=== PATIENT | female | born 1955 | race Caucasian/White ===

== ENCOUNTER → 2017-05-28 | Outpatient (CLI) | payer BC ==
[~2017-05-28] MED LIST: AMIT25TA9 PO; CHOL20009 PO; FLUT0.0529 NAE; LEVO125T72 PO; MOME200A INH; MONT1TAB3 PO; MULT-506 PO; PRLSR20 PO; SIMV40TA2 PO; ZINC1TAB PO
--- NOTE | 2017-05-29 14:21 | MAMMOGRAPHY REPORT ---
BILATERAL DIGITAL SCREENING MAMMOGRAM TOMOSYNTHESIS WITH CAD: 05/28/2017 CLINICAL HISTORY: Routine screening. Patient has no complaints. TECHNIQUE: Breast tomosynthesis in addition to standard 2D mammography was performed. Current study was also evaluated with a Computer Aided Detection (CAD) system. COMPARISON: Comparison is made to exams dated: 05/23/2016 mammogram, 05/18/2015 mammogram, 01/22/2014 mamm ogram, 01/16/2013 mammogram, 01/09/2012 mammogram, and 12/15/2010 mammogram - [facility] . BREAST COMPOSITION: The tissue of both breasts is heterogeneously dense, which may obscure small mas ses. FINDINGS: There are scattered and loosely grouped stable benign-appearing round and punctate microcal cifications. No suspicious mass, architectural distortion or cluster of new, suspicious microcalcifi cations is seen. IMPRESSION: ACR BI-RADS CATEGORY 1: NEGATIVE There is no mammographic evidence of malignancy. A 1 year screening mammogram is recommended. The pa tient will receive written notification of the results. Approximately 10% of breast cancers are not detected with mammography. A negative mammographic report should not delay biopsy if a clinically suggestive mass is present. Laura Truong M.D. ay/:05/28/2017 18:31:50 Television Tube Inspector: Ita WU)(M), [facility] letter sent: Normal 1/2 BI-RADS Code: ACR BI-RADS Category 1: Negative
== END | disposition home or self-care (01) ==
LOC: C.MAMM 07:31
PROVIDERS: ATTEND Obstetrics & Gynecology
DX: Z12.31 Encounter for screening mammogram for malignant neoplasm of breast (principal)

== ENCOUNTER → 2017-11-08 | Day surgery (SDC) | payer BC ==
[2017-11-01 08:11] VITALS: Ht 165.1 cm; Wt 58.2 kg
[~2017-11-08] VITALS: Ht 165.1 cm; Wt 58.2 kg
[~2017-11-08] MED LIST changes: +ASTN; +B-COTAB18 PO; +CALC500T68 PO; -FLUT0.0529 NAE; +FLUT50SP45 NAE; -LEVO125T72 PO; +LEVO88TA PO; +LIDOCAINE HCL 2% 2 ML VIAL (20MG/ML) ONE; +MIDAZOLAM HCL 1 MG/ML 2ML VIAL ONE; +OMEG10007 PO; +ONDANSETRON INJ 2 MG/ML 2 ML VIAL ONE; +PANT40TA PO; -PRLSR20 PO; +PROPOFOL IV EMULSION 10 MG/ML 20 ML VIAL IV ONE; +RANI150T3 PO; +SODIUM CHLORIDE 0.9% 500ML 500 ML IV ONE
--- NOTE | 2017-11-08 09:24 | Endo History and Physical ---
History & Physical Date of Service: Nov 08, 2017. Chief Complaint: Screening Referring Physician: Dr. Wilkerson History of Present Illness 62 yo CF who presents for screening colonoscopy. Past Medical History Asthma, Gastrointestinal Disorder, Reflux, High Cholesterol, Thyroid Disease Past Surgical History Hx Cardiac Surgery: No Hx Internal Defibrillator: No Hx Pacemaker: No Hx Abdominal Surgery: Yes (APPY, LAPAROSCOPY) Hx of Implantable Prosthesis: No Hx Post-Op Nausea and Vomiting: Yes Hx Cancer Surgery: No Hx Thoracic Surgery: No Hx Orthopedic: No Hx Urinary Tract Surgery: No Family History None Social History Smoking Status: Former Smoker Hx Substance Use: No Hx Alcohol Use: Yes (OCCASIONALLY) Allergies Coded Allergies: Dairy (Verified Allergy, Unknown, CONGESTED, 11/01/17) Erythromycin (Verified Allergy, Unknown, RASH, 11/01/17) Latex (Verified Allergy, Unknown, RASH, 11/01/17) Penicillins (Verified Allergy, Unknown, HIVES, 11/01/17) Sulfa Antibiotics (Verified Allergy, Unknown, HIVES, 11/01/17) Tetracycline (Verified Allergy, Unknown, RASH, 11/01/17) Ketorolac Tromethamine (Verified Adverse Reaction, Unknown, N/V, 11/01/17) Meperidine (Verified Adverse Reaction, Unknown, N/V, 11/01/17) Tramadol (Verified Adverse Reaction, Unknown, N/V, 11/01/17) Uncoded Allergies: PEANUTS (Allergy, Unknown, CONGESTED, 01/17/16) Current Medications Reported Home Medications Medications Dose Route/Sig Max Daily Dose Days Date Category Astelin Nasal [place] (Azelastine Hcl) 200 Sprays/30 Ml [place] 1-2 Sprays NA BID PRN 11/01/17 Reported Vitamin B Complex (B-Complex Vitamins) 1 Tab Tab 1 Tab PO 3XWK 11/01/17 Reported Calcium/Magnesium (Calcium W/ Magnesium) 1 Tab Tab 1 Tab PO QAM 11/01/17 Reported [place]-3 (Fish Oil) 1 Ea Cap 1 Cap PO QPM 11/01/17 Reported Allergy Nasal [place] 24 Ho (Fluticasone Propionate (Nasal)) 50 Mcg/Act Spr 1 [place] UMER DAILY PRN 11/01/17 Reported Zantac (Ranitidine HCl) 150 Mg Tab 150 Mg PO DAILY PRN 11/01/17 Reported Protonix (Pantoprazole Sodium) 40 Mg Tab 40 Mg PO QAM 11/01/17 Reported Synthroid (Levothyroxine Sodium) 88 Mcg Tab 88 Mcg PO QAM 11/01/17 Reported Vitamin D (Cholecalciferol) 2,000 Unit Tab 2 Tab PO QAM 01/17/16 Reported Dulera 200/5 Mcg (Mometasone Furoate-Formoterol) 1 Aer Aer 2 Puffs INH BID 30 01/17/16 Reported Singulair (Montelukast Sodium) 10 Mg Tab 10 Mg PO QAM 01/17/16 Reported Zocor (Simvastatin) 40 Mg Tab 40 Mg PO QAM 01/17/16 Reported Zinc (Zinc Gluconate) 50 Mg Tab 50 Mg PO QAM 03/15/14 Reported Multivitamin (Multivitamins) Tab 1 Tab PO QAM 03/15/14 Reported Elavil (Amitriptyline Hcl) 25 Mg Tab 25 Mg PO HS 03/15/14 Reported Vital Signs Weight (Kilograms): 58.18 Height (Feet): 5 Height (Inches): 5 Physical Exam General Appearance: WD/WN, no apparent distress Respiratory/Chest: Auscultation: breath sounds normal Cardiovascular: Heart Auscultation: RRR Abdomen: Bowel Sounds: normal Inspection & Palpation: soft, non-distended, no tenderness, guarding & rebound Assessment and Plan Assessment: 62 yo CF who presents for screening colonoscopy. Plan: Proceed with colonoscopy.
--- NOTE | 2017-11-08 10:24 | Discharge Instructions ---
Endoscopy Patient Instructions Date / Procedure(s) Performed Nov 08, 2017. Colonoscopy Allergy Information Coded Allergies: Dairy (Verified Allergy, Unknown, CONGESTED, 11/01/17) Erythromycin (Verified Allergy, Unknown, RASH, 11/01/17) Latex (Verified Allergy, Unknown, RASH, 11/01/17) Penicillins (Verified Allergy, Unknown, HIVES, 11/01/17) Sulfa Antibiotics (Verified Allergy, Unknown, HIVES, 11/01/17) Tetracycline (Verified Allergy, Unknown, RASH, 11/01/17) Ketorolac Tromethamine (Verified Adverse Reaction, Unknown, N/V, 11/01/17) Meperidine (Verified Adverse Reaction, Unknown, N/V, 11/01/17) Tramadol (Verified Adverse Reaction, Unknown, N/V, 11/01/17) Uncoded Allergies: PEANUTS (Allergy, Unknown, CONGESTED, 01/17/16) Discharge Date / Findings Nov 08, 2017. Colon polyps Diverticulosis Internal hemorrhoids Medication Instructions Stopped Medication(s): stopped all supplements on Saturday OK to resume all medications today as prescribed Reported Home Medications Medications Dose Route/Sig Max Daily Dose Days Date Category Astelin Nasal [place] (Azelastine Hcl) 200 Sprays/30 Ml [place] 1-2 Sprays NA BID PRN 11/01/17 Reported Vitamin B Complex (B-Complex Vitamins) 1 Tab Tab 1 Tab PO 3XWK 11/01/17 Reported Calcium/Magnesium (Calcium W/ Magnesium) 1 Tab Tab 1 Tab PO QAM 11/01/17 Reported [place]-3 (Fish Oil) 1 Ea Cap 1 Cap PO QPM 11/01/17 Reported Allergy Nasal [place] 24 Ho (Fluticasone Propionate (Nasal)) 50 Mcg/Act Spr 1 [place] UMER DAILY PRN 11/01/17 Reported Zantac (Ranitidine HCl) 150 Mg Tab 150 Mg PO DAILY PRN 11/01/17 Reported Protonix (Pantoprazole Sodium) 40 Mg Tab 40 Mg PO QAM 11/01/17 Reported Synthroid (Levothyroxine Sodium) 88 Mcg Tab 88 Mcg PO QAM 11/01/17 Reported Vitamin D (Cholecalciferol) 2,000 Unit Tab 2 Tab PO QAM 01/17/16 Reported Dulera 200/5 Mcg (Mometasone Furoate-Formoterol) 1 Aer Aer 2 Puffs INH BID 30 5/3/16 Reported Singulair (Montelukast Sodium) 10 Mg Tab 10 Mg PO QAM 01/17/16 Reported Zocor (Simvastatin) 40 Mg Tab 40 Mg PO QAM 01/17/16 Reported Zinc (Zinc Gluconate) 50 Mg Tab 50 Mg PO QAM 03/15/14 Reported Multivitamin (Multivitamins) Tab 1 Tab PO QAM 03/15/14 Reported Elavil (Amitriptyline Hcl) 25 Mg Tab 25 Mg PO HS 03/15/14 Reported Provider Instructions Activity Restrictions - No exercising or heavy lifting for 24 hours. - Do not drink alcohol the day of the procedure. - Do not drive a car or operate machinery until the day after the procedure. - Do not make any important decisions or sign important papers in 24 hours after the procedure. Following Day: - Return to full activity which may include returning to work/school. Diet Start your diet with liquids and light foods (jello, soup, juice, toast). Then eat your usual diet if not nauseated. Treatment For Common After Affects For mild abdominal pain, bloating, or excessive gas: - Rest - Eat lightly - Lie on right side Follow-Up Information Follow-up with Dr.Tania Wilkerson as scheduled Anesthesia Information What You Should Know You have had a procedure that required some medicine to reduce anxiety and discomfort. This treatment is called moderate sedation. After receiving the treatment, you may be sleepy, but you will be able to breathe on your own. The effects of the treatment may last for several hours. Follow these instructions along with Activity/Diet recommendations noted above: * Do NOT do anything where dizziness or clumsiness would be dangerous. * Rest quietly at home today, then you can be up and about tomorrow. * Have a responsible person stay with you the rest of today. * You may have had an I.V. today. If so, you may take the dressing off later today. Recommendations Call your doctor if: * Trouble breathing * Continuous vomiting for more than 24 hours * Temperature above 101 degrees * Severe abdominal pain or bloating * Pain not relieved by pain medicine ordered * There is increased drainage or redness from any incision * A large amount of rectal bleeding greater than 2-3 tablespoons. (If you had a polyp/s removed or have hemorrhoids, a small amount of blood - from the rectum is to be expected.) * You have any unanswered questions or concerns. IN THE EVENT OF A SERIOUS EMERGENCY, GO TO THE NEAREST EMERGENCY ROOM Your discharge instructions were prepared by provider Rosas Gold. Patient Instructions Signature Page Jamia Mcmahon Patient (or Guardian) Signature/Date: I have read and understand the instructions given to me by my caregivers. Caregiver/RN/Doctor Signature/Date: The above-named patient and/or guardian has received patient instructions on this date. + Original Patient Signature Page (only) stays with chart. Please make copy for patient.
--- NOTE | 2017-11-08 10:36 | Anesthesiology Progress Note ---
Anesthesia Post Op Note Date & Time Nov 08, 2017 at 10:36 Vital Signs Pain Intensity: 0 Vital Signs Past 12 Hours Date Time Temp Pulse Resp B/P (MAP) Pulse Ox O2 Delivery O2 Flow Rate FiO2 11/08/17 10:28 36.5 76 18 93/58 (70) 98 Room Air 11/08/17 09:29 36.7 75 18 114/70 (85) 99 Room Air Notes Mental Status: alert / awake / arousable, participated in evaluation Pt Amnestic to Procedure: Yes Nausea / Vomiting: adequately controlled Pain: adequately controlled Airway Patency, RR, SpO2: stable & adequate BP & HR: stable & adequate Hydration State: stable & adequate Anesthetic Complications: no major complications apparent
--- NOTE | 2017-11-08 10:41 | GI REPORT ---
Procedure Date: 11/08/2017 9:38 AM Procedure: Colonoscopy Indications: Screening for colorectal malignant neoplasm Medicines: Monitored Anesthesia Care Complications: No immediate complications. Estimated Blood Loss: Estimated blood loss: none. Procedure: Pre-Anesthesia Assessment: - Prior to the procedure, a History and Physical was performed, and patient medications and allergies were reviewed. The patient's tolerance of previous anesthesia was also reviewed. The risks and benefits of the procedure and the sedation options and risks were discussed with the patient. All questions were answered, and informed consent was obtained. Prior Anticoagulants: The patient has taken no previous anticoagulant or antiplatelet agents. ASA Grade Assessment: II - A patient with mild systemic disease. After reviewing the risks and benefits, the patient was deemed in satisfactory condition to undergo the procedure. After I obtained informed consent, the scope was passed under direct vision. Throughout the procedure, the patient's blood pressure, pulse, and oxygen saturations were monitored continuously. The scope was introduced through the anus and advanced to the terminal ileum. The colonoscopy was performed without difficulty. The patient tolerated the procedure well. The quality of the bowel preparation was good. The terminal ileum, ileocecal valve, appendiceal orifice, and rectum were photographed. Findings: The perianal and digital rectal examinations were normal. A 12 mm polyp was found in the ascending colon. The polyp was flat. The polyp was removed with a saline injection-lift technique using a hot snare. Resection and retrieval were complete. To prevent bleeding after the polypectomy, two hemostatic clips were successfully placed (MR conditional). There was no bleeding at the end of the procedure. Four sessile polyps were found in the sigmoid colon and ascending colon. The polyps were 5 to 9 mm in size. These polyps were removed with a hot snare. Resection and retrieval were complete. A 4 mm polyp was found in the rectum. The polyp was sessile. The polyp was removed with a hot snare. Resection was complete, but the polyp tissue was not retrieved. Multiple small-mouthed diverticula were found in the sigmoid colon. Non-bleeding internal hemorrhoids were found during retroflexion. The hemorrhoids were small. Impression: - One 12 mm polyp in the ascending colon, removed using injection-lift and a hot snare. Resected and retrieved. Clips (MR conditional) were placed. - Four 5 to 9 mm polyps in the sigmoid colon and in the ascending colon, removed with a hot snare. Resected and retrieved. - One 4 mm polyp in the rectum, removed with a hot snare. Complete resection. Polyp tissue not retrieved. - Diverticulosis in the sigmoid colon. - Non-bleeding internal hemorrhoids. Recommendation: - Resume previous diet. - Continue present medications. - Repeat colonoscopy for surveillance based on pathology results. - Return to primary care physician as previously scheduled. Rosas Gold, DO 11/08/2017 10:41:11 AM This report has been signed electronically. Note Initiated On: 11/08/2017 9:38 AM I attest to the content of the Intraoperative Record and orders documented therein, exceptions below
[2017-11-08 10:58] VITALS: BP 102/68; PULSE 66; O2SAT 96
== END | disposition home or self-care (01) ==
LOC: C.GI 09:06
PROVIDERS: ATTEND Internal Medicine
DX: Z12.11 Encounter for screening for malignant neoplasm of colon (principal); D12.2 Benign neoplasm of ascending colon; D12.5 Benign neoplasm of sigmoid colon; K62.1 Rectal polyp; K57.30 Diverticulosis of large intestine without perforation or abscess without bleeding; K64.8 Other hemorrhoids; J45.909 Unspecified asthma, uncomplicated; K21.9 Gastro-esophageal reflux disease without esophagitis; E03.9 Hypothyroidism, unspecified; E78.00 Pure hypercholesterolemia, unspecified; Z90.89 Acquired absence of other organs; Z87.891 Personal history of nicotine dependence; Z88.1 Allergy status to other antibiotic agents; Z88.0 Allergy status to penicillin; Z88.2 Allergy status to sulfonamides; Z88.8 Allergy status to other drugs, medicaments and biological substances

== ENCOUNTER → 2018-01-08 | Outpatient (CLI) | payer BC ==
[~2018-01-08] MED LIST changes: -LIDOCAINE HCL 2% 2 ML VIAL (20MG/ML) ONE; -MIDAZOLAM HCL 1 MG/ML 2ML VIAL ONE; -ONDANSETRON INJ 2 MG/ML 2 ML VIAL ONE; -PROPOFOL IV EMULSION 10 MG/ML 20 ML VIAL IV ONE; -SODIUM CHLORIDE 0.9% 500ML 500 ML IV ONE
== END | disposition home or self-care (01) ==
LOC: C.PAPS 11:30
PROVIDERS: ATTEND Obstetrics & Gynecology
DX: Z01.419 Encounter for gynecological examination (general) (routine) without abnormal findings (principal); Z11.51 Encounter for screening for human papillomavirus (HPV)